=== PATIENT | male | born 1965 | race Caucasian/White ===

== ENCOUNTER 2020-08-07 18:08 | Observation (INO) ==
[2020-08-07] MEDS ORDERED: Isovue-370 500 ML BOTTLE IVP ONE ×2 (19:22→19:23)
[2020-08-07 19:49] LABS: Basophils % 0.4 %; Eosinophils # 0.1 K/mcL (0.0-0.6); Eosinophils % 1.8 %; Hematocrit 40.3 % (37.5-50.1); Hemoglobin 13.9 g/dL (12.9-16.9); Immature Granulocytes % 0.6 % (0-4); Lymphocytes # 3.8 K/mcL (0.6-4.6); Mean Corpuscular HGB Conc 34.5 g/dL (31.6-35.5); Mean Corpuscular Hemoglobin 35.5 pg (28.0-33.3); Mean Corpuscular Volume 103.1 fL (83.0-100.0); Mean Platelet Volume 10.9 fL (9.4-12.4); Monocytes # 0.4 K/mcL (0.0-1.3); Monocytes % 5.8 %; Neutrophils # 2.7 K/mcL (1.6-8.9); Platelet Count 217 K/mcL (140-400); Red Blood Count 3.91 M/mcL (4.19-5.50); Red Cell Distribution Width 12.7 % (11.5-14.5); Segmented Neutrophils % 38.4 %; White Blood Count 7.1 K/mcL (4.3-11.1)
[2020-08-07 19:59] LABS: INR 2.5
[2020-08-07 20:02] LABS: Activated Partial Thrombo Time 33.8 Seconds (26.0-36.0)
[2020-08-07 20:10] LABS: BUN/Creatinine Ratio 15 (6-26); Blood Urea Nitrogen 13 mg/dL (6-20); Carbon Dioxide 25 mEq/L (23-29); Chloride 102 mEq/L (98-107); Glucose 122 mg/dL (70-105); Osmolality,Calculated 287 (280-300); Potassium 3.7 mEq/L (3.5-5.1); Sodium 138 mEq/L (136-145); Troponin I < 0.03 ng/mL (< 0.04); eGFR For African Americans > 60 (> 60); eGFR For Non-African Americans > 60 (> 60)
[2020-08-07] MEDS ORDERED: Aspirin 325 MG TABLET PO ONE (21:59)
[2020-08-07] MEDS ORDERED: Naloxone 0.4 MG/ML INJ IVP PRN (22:33)
[2020-08-07] MEDS ORDERED: Ondansetron 4 MG/2 ML VIAL IVP PRN (22:33)
[2020-08-07] MEDS ORDERED: *HR* Warfarin 5 MG TABLET PO ONE (23:59)
[2020-08-08] MEDS ORDERED: traZODone 50 MG TABLET PO SCH (01:15)
[2020-08-08] MEDS: Gabapentin 400 MG CAPSULE PO SCH ×3 (01:25→14:29)
[2020-08-08] MEDS: LAMIVUDINE PO SCH ×2 (01:26→14:31)
[2020-08-08] MEDS: ZIDOVUDINE PO SCH ×2 (01:26→14:31)
[2020-08-08 03:19] LABS: BUN/Creatinine Ratio 15 (6-26); Blood Urea Nitrogen 13 mg/dL (6-20); Calcium 9.3 mg/dL (8.6-10.3); Carbon Dioxide 20 mEq/L (23-29); Chloride 105 mEq/L (98-107); Chol/HDL Ratio 4.6 (0-4.9); Cholesterol 171 mg/dL (< 200); Glucose 134 mg/dL (70-105); HDL Cholesterol 37 mg/dL (40-59); LDL Cholesterol,Calculated 70 mg/dL (< 100); Magnesium 2.2 mg/dL (1.6-2.6); Osmolality,Calculated 286 (280-300); Potassium 3.9 mEq/L (3.5-5.1); Sodium 137 mEq/L (136-145); Triglycerides 322 mg/dL (< 150); Troponin I < 0.03 ng/mL (< 0.04); eGFR For African Americans > 60 (> 60); eGFR For Non-African Americans > 60 (> 60)
[2020-08-08] MEDS ORDERED: Acetaminophen 325 MG TABLET PO PRN (04:48)
[2020-08-08 08:42] LABS: INR 2.5; Prothrombin Time 28.1 Seconds (9.4-12.1)
[2020-08-08] MEDS ORDERED: Regadenoson 0.4 MG/5 ML SYRINGE IVP ONE (08:46)
[2020-08-08 08:57] LABS: Basophils % 0.3 %; Eosinophils # 0.1 K/mcL (0.0-0.6); Eosinophils % 0.9 %; Hematocrit 38.1 % (37.5-50.1); Immature Granulocytes % 0.6 % (0-4); Lymphocytes # 2.2 K/mcL (0.6-4.6); Mean Corpuscular HGB Conc 34.1 g/dL (31.6-35.5); Mean Corpuscular Hemoglobin 35.3 pg (28.0-33.3); Mean Corpuscular Volume 103.5 fL (83.0-100.0); Mean Platelet Volume 10.7 fL (9.4-12.4); Monocytes # 0.3 K/mcL (0.0-1.3); Monocytes % 4.9 %; Neutrophils # 3.9 K/mcL (1.6-8.9); Platelet Count 199 K/mcL (140-400); Red Blood Count 3.68 M/mcL (4.19-5.50); Red Cell Distribution Width 12.6 % (11.5-14.5); Segmented Neutrophils % 59.3 %; White Blood Count 6.5 K/mcL (4.3-11.1)
[2020-08-08] MEDS ORDERED: Loratadine 10 MG TABLET PO SCH (09:00)
[2020-08-08] MEDS ORDERED: Tiotropium 10 INH DOSE IH SCH (10:00)
[2020-08-08 11:50] VITALS: BP 139/92
[2020-08-08] MEDS ORDERED: Warfarin perPT PO PRN (18:00)
[2020-08-08] MEDS ORDERED: *HR* Warfarin 5 MG TABLET PO ONE (18:00)
== END 2020-08-08 15:20 | disposition home or self-care (01) ==
LOC: 3NENU 18:08 → EMEROOARM 18:08 → SUATTDRO 22:59 → 3NENU 23:13 → CDU 08-08 09:15
PROVIDERS: ADMIT Family Medicine; ATTEND Internal Medicine